=== PATIENT | male | born 1940 | race Caucasian/White ===

== ENCOUNTER 2017-10-07 07:31 | Emergency (ER) | payer MEDICARE, OTHER ==
[~2017-10-07] VITALS: Ht 177.8 cm; Wt 111.0 kg
[2017-10-07 07:33] VITALS: BP 195/93
[2017-10-07] MEDS ORDERED: LIDOcaine 2% 10ml TOPICAL JELLY (Urojet) MM ONE (08:05)
[2017-10-07] MEDS ORDERED: morphine 4 MG/ML inj SYRINge IV ONE (08:20)
[2017-10-07 09:12] LABS: BASOPHILS % (AUTO) 0.2 % (0-1); EOSINOPHILS # (AUTO) 0.2 X10'3 (0-0.9); EOSINOPHILS % (AUTO) 2.1 % (0-6); HEMATOCRIT 44.7 % (42.0-52.0); HEMOGLOBIN 14.9 g/dl (14.0-17.9); LYMPHOCYTES # (AUTO) 1.7 X10'3 (1.1-4.8); LYMPHOCYTES % (AUTO) 14.9 % (21-51); MEAN CORPUSCULAR HEMOGLOBIN 32.1 PG (27.0-31.0); MEAN CORPUSCULAR HGB CONC 33.5 % (33.0-36.5); MEAN CORPUSCULAR VOLUME 95.9 FL (78-98); MEAN PLATELET VOLUME 9.4 FL (7.4-10.4); MONOCYTES # (AUTO) 0.6 X10'3 (0-0.9); MONOCYTES % (AUTO) 5.6 % (2-12); NEUTROPHILS # (AUTO) 8.6 X10'3 (1.8-7.7); NEUTROPHILS % (AUTO) 77.2 % (42-75); PLATELET COUNT 167 X10'3 (140-440); RED BLOOD COUNT 4.66 X10'6 (4.70-6.10); RED CELL DISTRIBUTION WIDTH 13.1 % (11.5-14.5); WHITE BLOOD COUNT 11.1 X10'3 (4.5-11.0)
[2017-10-07 09:14] LABS: ALANINE AMINOTRANSFERASE 18 U/L (12-78); ALBUMIN 3.7 G/DL (3.4-5.0); ALBUMIN/GLOBULIN RATIO 0.9 (1.1-1.5); ALKALINE PHOSPHATASE 94 IU/L (46-116); ANION GAP 10 (8-16); ASPARTATE AMINO TRANSFERASE 18 U/L (10-37); BILIRUBIN,TOTAL 0.4 MG/DL (0.1-1.0); BLOOD UREA NITROGEN 22 MG/DL (7-18); BUN/CREATININE RATIO 20.4 (5.4-32.0); CALCIUM 8.9 MG/DL (8.5-10.1); CHLORIDE 104 MMOL/L (99-107); CREATININE 1.08 MG/DL (0.60-1.10); GLUCOSE 132 MG/DL (70-104); SODIUM 138 MMOL/L (135-145); TOTAL CARBON DIOXIDE 23.6 MMOL/L (24-32); TOTAL PROTEIN 7.6 G/DL (6.4-8.2); eGFR 66 ML/MIN
== END 2017-10-07 08:55 | disposition home or self-care (01) ==
LOC: ER 07:31
DX: R33.9 Retention of urine, unspecified (principal); Z90.79 Acquired absence of other genital organ(s)
CPT/HCPCS: 36415; 80053; 85025; 99285; A4315; C1758

== ENCOUNTER 2022-08-23 10:24 | Outpatient (CLI) | payer MEDICARE ==
[2022-08-23 11:07] LABS: BASOPHILS % (AUTO) 0.6 % (0-1); EOSINOPHILS # (AUTO) 0.3 X10'3 (0-0.9); EOSINOPHILS % (AUTO) 3.5 % (0-6); HEMATOCRIT 42.7 % (42.0-52.0); HEMOGLOBIN 14.4 g/dl (14.0-17.9); LYMPHOCYTES # (AUTO) 2.2 X10'3 (1.1-4.8); LYMPHOCYTES % (AUTO) 26.8 % (21-51); MEAN CORPUSCULAR HEMOGLOBIN 32.5 PG (27.0-31.0); MEAN CORPUSCULAR HGB CONC 33.7 g/dL (33.0-36.5); MEAN CORPUSCULAR VOLUME 96.4 FL (78-98); MEAN PLATELET VOLUME 8.9 FL (7.4-10.4); MONOCYTES # (AUTO) 0.6 X10'3 (0-0.9); NEUTROPHILS # (AUTO) 5.1 X10'3 (1.8-7.7); NEUTROPHILS % (AUTO) 62.1 % (42-75); PLATELET COUNT 192 X10'3 (140-440); RED BLOOD COUNT 4.42 X10'6 (4.70-6.10); RED CELL DISTRIBUTION WIDTH 13.9 % (11.5-14.5); WHITE BLOOD COUNT 8.2 X10'3 (4.5-11.0)
[2022-08-23 11:24] LABS: APTT 28 SECONDS (22-32)
[2022-08-23 11:37] LABS: ALANINE AMINOTRANSFERASE 19 U/L (12-78); ALBUMIN 3.5 G/DL (3.4-5.0); ALKALINE PHOSPHATASE 84 IU/L (46-116); ANION GAP 6 (8-16); ASPARTATE AMINO TRANSFERASE 12 U/L (10-37); BILIRUBIN,TOTAL 0.4 MG/DL (0.1-1.0); BLOOD UREA NITROGEN 17 MG/DL (7-18); BUN/CREATININE RATIO 16.2 (10.0-20.0); CALCIUM 8.9 MG/DL (8.5-10.1); CHLORIDE 107 MMOL/L (99-107); CREATININE 1.05 MG/DL (0.60-1.10); POTASSIUM 4.3 MMOL/L (3.5-5.1); SODIUM 140 MMOL/L (135-145); TOTAL CARBON DIOXIDE 26.8 MMOL/L (24-32); TOTAL PROTEIN 7.1 G/DL (6.4-8.2); eGFR 67 ML/MIN
[2022-08-23 11:49] LABS: GLUCOSE 118 MG/DL (70-104)
[2022-08-23] MEDS ORDERED: IODIXANOL 320 MG/ML INFUS..BTL 100ML IV ONE (11:53)
== END 2022-08-23 23:59 | disposition home or self-care (01) ==
LOC: RAD 10:24
PROVIDERS: ATTEND Internal Medicine Cardiovascular Disease
DX: K76.0 Fatty (change of) liver, not elsewhere classified (principal); I35.8 Other nonrheumatic aortic valve disorders; R06.02 Shortness of breath; I65.29 Occlusion and stenosis of unspecified carotid artery; I25.10 Atherosclerotic heart disease of native coronary artery without angina pectoris; I70.0 Atherosclerosis of aorta; J43.2 Centrilobular emphysema; J98.11 Atelectasis; D73.89 Other diseases of spleen; N28.1 Cyst of kidney, acquired; K42.9 Umbilical hernia without obstruction or gangrene; K57.30 Diverticulosis of large intestine without perforation or abscess without bleeding; M47.814 Spondylosis without myelopathy or radiculopathy, thoracic region; M47.817 Spondylosis without myelopathy or radiculopathy, lumbosacral region; Z96.641 Presence of right artificial hip joint
CPT/HCPCS: 36415; 71046; 71275; 74174; 80053; 83880; 85025; 85610; 85730; 94010; 94727; 94729; J3490; Q9967

== ENCOUNTER 2022-08-26 14:31 | Day surgery (SDC) | payer MEDICARE ==
[2022-08-26] VITALS (7 sets, daily range): BP systolic 129–157; BP diastolic 57–82
[~2022-08-26] VITALS: Ht 175.3 cm; Wt 108.9 kg
[2022-08-26] MEDS ORDERED: LORazepam 0.5 MG tablet PO PRN (14:55)
[2022-08-26] MEDS ORDERED: normal saline 1,000 ML IV SCH (14:55)
[2022-08-26] MEDS ORDERED: diphenhydrAMINE 25mg capsule PO PRN (14:55)
[2022-08-26] MEDS ORDERED: ASPI81TA52 PO (15:38)
[2022-08-26] MEDS ORDERED: AMLO5TAB4 PO (15:38)
[2022-08-26] MEDS ORDERED: LISI40TA13 PO (15:38)
[2022-08-26] MEDS ORDERED: MULT-1085 PO (15:38)
[2022-08-26] MEDS ORDERED: OMEG-42 PO (15:38)
[2022-08-26] MEDS ORDERED: LEVO50TA PO (15:38)
[2022-08-26] MEDS ORDERED: SIMV-343 PO (15:38)
[2022-08-26] MEDS ORDERED: GABA-534 PO (15:38)
[2022-08-26] MEDS ORDERED: LIDOcaine 1% (10mg/ml) 2ml vial ONE (16:25)
[2022-08-26] MEDS ORDERED: nitroGLYCERIN-Tridil 50MG/D5W 250 ML IV ONE (16:25)
[2022-08-26] MEDS ORDERED: fentaNYL/PF 50MCG/1 ML 2ML syringe ONE (16:26)
[2022-08-26] MEDS ORDERED: heparin 1,000unit/ml 10ml vial 10 ML ONE (16:26)
[2022-08-26] MEDS ORDERED: midazolam 1 mg/ML 2ml injection ONE (16:26)
[2022-08-26] MEDS ORDERED: verapamil 2.5 mg/ml inj IV ONE (16:26)
[2022-08-26] MEDS ORDERED: iohexol 350MG/ML 100ml bottle IV ONE ×2 (16:26→18:04)
[2022-08-26 18:17] LABS: ISTAT HGB ART 12.6 g/dl (14.0-17.9); ISTAT Hct ART 37 %PCV (42-52); ISTAT O2 SATURATION ARTERIAL 87 % (95-98); ISTAT SOURCE ART
[2022-08-26] MEDS ORDERED: HYDROcodone/acetaminophen 10/325mg tab PO PRN (18:40)
[2022-08-26] MEDS ORDERED: HYDROcodone/acetaminophen 5mg/325mg tablet PO PRN (18:40)
[2022-08-27 15:18] LABS: ISTAT Hct MIX 38 %PCV (42-52); ISTAT O2 SATURATION MIX VENOUS 64 % (60-80); ISTAT SOURCE VEN
== END 2022-08-26 20:33 | disposition home or self-care (01) ==
LOC: SSTAY O 14:31
PROVIDERS: ATTEND Student in an Organized Health Care Education/Training Program
DX: I08.0 Rheumatic disorders of both mitral and aortic valves (principal); I25.10 Atherosclerotic heart disease of native coronary artery without angina pectoris; T82.855A Stenosis of coronary artery stent, initial encounter; I10 Essential (primary) hypertension; E78.5 Hyperlipidemia, unspecified; Z79.82 Long term (current) use of aspirin; Z79.899 Other long term (current) drug therapy; Z87.891 Personal history of nicotine dependence; Y84.0 Cardiac catheterization as the cause of abnormal reaction of the patient, or of later complication, without mention of misadventure at the time of the procedure; Y92.89 Other specified places as the place of occurrence of the external cause
CPT/HCPCS: 82803; 85014; 93005; 93456; 99152; 99153; A6258; J1644; J2250; J3010; J3490; J7030; Q0163; Q9967; A6402; C1751; C1894

== ENCOUNTER 2022-09-19 05:20 | Inpatient (IN) | payer MEDICARE ==
[2022-09-11 14:29] LABS: CLARITY,URINE CLOUDY (Clear); COLOR,URINE YELLOW (Yellow); GLUCOSE, URINE NEGATIVE (Neg); KETONES,URINE 15 mg/dl (Neg); LEUKOCYTE ESTERASE ,URINE TRACE (Neg); NITRITES, URINE NEGATIVE (Neg); OCCULT BLOOD,URINE NEGATIVE (Neg); PROTEIN,URINE TRACE mg/dl (Neg)
[2022-09-11 14:41] LABS: BASOPHILS % (AUTO) 0.3 % (0-1); EOSINOPHILS # (AUTO) 0.3 X10'3 (0-0.9); EOSINOPHILS % (AUTO) 2.9 % (0-6); LYMPHOCYTES # (AUTO) 2.5 X10'3 (1.1-4.8); LYMPHOCYTES % (AUTO) 28.1 % (21-51); MEAN CORPUSCULAR HEMOGLOBIN 32.7 PG (27.0-31.0); MEAN CORPUSCULAR HGB CONC 33.9 g/dL (33.0-36.5); MEAN CORPUSCULAR VOLUME 96.7 FL (78-98); MONOCYTES # (AUTO) 0.7 X10'3 (0-0.9); MONOCYTES % (AUTO) 7.4 % (2-12); NEUTROPHILS # (AUTO) 5.4 X10'3 (1.8-7.7); NEUTROPHILS % (AUTO) 61.3 % (42-75); PRE OP HEMATOCRIT 41.5 % (42.0-52.0); PRE OP PLATELET COUNT 182 X10'3 (140-440); PRE OP PROTIME 11.1 SECONDS (9.0-12.0); RED BLOOD COUNT 4.29 X10'6 (4.70-6.10); RED CELL DISTRIBUTION WIDTH 13.7 % (11.5-14.5)
[2022-09-11 14:50] LABS: ALBUMIN 3.5 G/DL (3.4-5.0); ALBUMIN/GLOBULIN RATIO 1.1 (1.1-1.5); ALKALINE PHOSPHATASE 79 IU/L (46-116); BLOOD UREA NITROGEN 24 MG/DL (7-18); BUN/CREATININE RATIO 16.3 (10.0-20.0); CALCIUM 9.1 MG/DL (8.5-10.1); CHLORIDE 106 MMOL/L (99-107); CREATININE 1.47 MG/DL (0.60-1.10); PRE OP ALT 19 U/L (30-65); PRE OP ANION GAP 5 (8-16); PRE OP AST 15 U/L (10-37); PRE OP BILIRUB, TOTAL 0.6 MG/DL (0.0-1.0); PRE OP POTASSIUM 4.5 MMOL/L (3.4-5.1); PRE OP SODIUM 140 MMOL/L (135-145); TOTAL CARBON DIOXIDE 28.7 MMOL/L (24-32); TOTAL PROTEIN 6.8 G/DL (6.4-8.2); eGFR 46 ML/MIN
[2022-09-11 14:50] LABS: UA COLLECTION TYPE CLN CATCH MIDSTREAM
[2022-09-11 14:53] LABS: PRE OP GLUCOSE 109 MG/DL (70-104)
[2022-09-11 14:57] LABS: HYALINE CASTS >30 /LPF (NEGATIVE); SQUAMOUS EPITHELIAL CELL,UR MODERATE /LPF (FEW); WBC CLUMPS,URINE MANY /HPF (NEGATIVE)
[2022-09-11 14:58] LABS: BACTERIA,URINE 1+ /HPF (Neg); CAL OXALATE CRYSTALS FEW /HPF (NEGATIVE); RBC,URINE 0-2 /HPF (0-2); WBC,URINE 30-50 /HPF (0-4)
[~2022-09-19] VITALS: Ht 175.3 cm; Wt 109.0 kg
[2022-09-19] VITALS (26 sets, daily range): BP systolic 102–141; BP diastolic 50–79
[~2022-09-19 05:20] MED LIST: AMLO5TAB4 PO; AREDS PO; ASPI81TA52 PO; GABA-534 PO; LEVO50TA PO; LISI40TA13 PO; SIMV-343 PO; ringers solution, lacted 1,000 ML IV SCH
[2022-09-19] MEDS ORDERED: cefazolin 2gm/D5W 100mL 100 ML IV ONE (05:30)
[2022-09-19] MEDS ORDERED: vancomycin 1,500 MG in NS 300ml IV soln IV ONE (05:30)
[2022-09-19] MEDS ORDERED: nitroPRUSSIDE (NIPRIDE) (200MCG/ML) 100ML Drip IV SCH (05:30)
[2022-09-19] MEDS ORDERED: famotidine 20mg tablet PO ONE (05:30)
[2022-09-19] MEDS ORDERED: phenylephrine inj 50 MG in normal saline 250ml IV solN IV SCH (05:30)
[2022-09-19] MEDS ORDERED: aspirin 325mg tablet PO ONE (05:30)
[2022-09-19] MEDS ORDERED: ondansetron/PF 4mg/2ml inj IV PRN ×3 (05:30→08:35)
[2022-09-19] MEDS ORDERED: LIDOcaine 1% 30ml preserv. free vial ONE (06:36)
[2022-09-19] MEDS ORDERED: heparin 1,000 UNITS/NS 500ml 1,500 ML ONE (06:36)
[2022-09-19] MEDS ORDERED: iohexol 350MG/ML 100ml bottle IV ONE (06:36)
[2022-09-19] MEDS ORDERED: midazolam 1 mg/ML 2ml injection ONE (06:56)
[2022-09-19] MEDS ORDERED: fentaNYL/PF 50MCG/1 ML 2ML syringe ONE (06:56)
[2022-09-19] MEDS ORDERED: propofol inj 20 ML IV ONE ×3 (06:59)
[2022-09-19] MEDS ORDERED: ringers solution, lacted 1,000 ML IV SCH (07:05)
[2022-09-19] MEDS ORDERED: meperidine/PF 25mg/ml syringe IV PRN (07:05)
[2022-09-19] MEDS ORDERED: labetalol 20mg/4ml (5mg/ml) syringe IV PRN ×2 (07:05→08:35)
[2022-09-19] MEDS ORDERED: acetaminophen 1,000mg/100ml IV 100 ML IV PRN (07:05)
[2022-09-19] MEDS ORDERED: hydrALAZINE 20mg/ml inj. IV PRN ×2 (07:05→08:35)
[2022-09-19] MEDS ORDERED: HYDROmorphone/PF 0.2 MG/ML SYRINGE IV PRN ×2 (07:05)
[2022-09-19] MEDS ORDERED: proCHLORperazine 10 MG/2 ml inj IV PRN ×2 (07:05→08:35)
[2022-09-19] MEDS ORDERED: morphine 2 MG/ML inj. syringe IV PRN (07:05)
[2022-09-19] MEDS ORDERED: morphine 4 MG/ML inj SYRINge IV PRN (07:05)
[2022-09-19] MEDS ORDERED: LIDOcaine 1% (10mg/ml) 2ml vial ONE ×2 (07:17→07:29)
[2022-09-19] MEDS ORDERED: protamine sulfate 10mg/ml inj. ONE (07:30)
[2022-09-19] MEDS ORDERED: heparin 1,000unit/ml 10ml vial 10 ML ONE (07:36)
[2022-09-19] MEDS ORDERED: atorvastatin 20mg tablet PO SCH (08:00)
[2022-09-19] MEDS ORDERED: lisinopril 20mg tablet PO SCH (08:00)
[2022-09-19] MEDS ORDERED: AREDS PO SCH (08:00)
[2022-09-19] MEDS ORDERED: aspirin 81mg, enteric-coated 1 TAB TABLET.DR PO SCH (08:00)
[2022-09-19] MEDS ORDERED: amLODIPine 5mg tablet PO SCH (08:00)
[2022-09-19] MEDS ORDERED: potassium Cl 20mEq/100mL bag 100 ML IV PRN (08:35)
[2022-09-19] MEDS ORDERED: potassium Cl 20 mEq SR tablet PO PRN (08:35)
[2022-09-19] MEDS ORDERED: pantoprazole 40mg Tablet.DR PO PRN (08:35)
[2022-09-19] MEDS ORDERED: potassium Cl 40MEQ/1/2NS 520ml 520 ML IV PRN (08:35)
[2022-09-19] MEDS ORDERED: magnesium 2GM in 50ml NS 50 ML IV PRN (08:35)
[2022-09-19] MEDS ORDERED: docusate sod 100mg capsule PO PRN (08:35)
[2022-09-19] MEDS ORDERED: HYDROcodone/acetaminophen 5mg/325mg tablet PO PRN (08:35)
[2022-09-19] MEDS ORDERED: diphenhydrAMINE 25mg capsule PO PRN (08:35)
[2022-09-19] MEDS ORDERED: acetaminophen 325mg tablet PO PRN (08:35)
[2022-09-19] MEDS ORDERED: magnesium 4gm in 100ml NS 100 ML IV PRN (08:35)
[2022-09-19] MEDS ORDERED: normal saline 1000ml 1,000 ML IV SCH (08:35)
[2022-09-19] MEDS ORDERED: potassium CL 10mEq/100ml bag 100 ML IV PRN (08:35)
[2022-09-19] MEDS ORDERED: potassium Cl 40MEQ/270ML bag 250 ML IV PRN (08:35)
[2022-09-19] MEDS ORDERED: ALPRAZolam 0.25mg tablet PO PRN (08:35)
--- NOTE | 2022-09-19 08:44 | NUR ---
Received from OR via BED, accompanied by Anesthesiologist DR. WELLS and report given by Anesthesiologist AND OR NURSE. PT ARRIVED DROWSY BUT ABLE TO RESPOND TO VERBAL STIMULI ON 6 L OF 02 VIA MASK. VSS. PT HAS 20G IV TO RIGHT HAND AND ART LINE TO LEFT WRIST AND PRESSURE DEVICE INTACT. PT HAS DRESSING TO BILATERAL GROIN THAT IS C/D/I, NO SWELLING OR BLEEDING NOTED. LR CURRENTLY RUNNING. NEURO ASSESSMENT COMPLETED. 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 BILATERAL PEDAL PULSES STRONG. VSS. WILL CONTINUE TO MONITOR AND RECHECK GROIN SITES. Addendum: 09/19/22 at 0921 by Rubén Harkins RN Amended: Links added.
--- NOTE | 2022-09-19 09:55 | NUR ---
DISCONTINUE LEFT RADIAL ARTLINE WITH MANUAL PRESSURE. HEMOSTASIS IS OBTAINED AFTER 5 MINUTES. NO S/S OF BLEEDING OR HEMATOMA NOTED. APPLIED GAUZE AND COBAN THAT IS C/D/I AT THIS TIME.
--- NOTE | 2022-09-19 10:34 | NUR ---
PATIENT HAS MET ALL CRITERIA FOR TRANSFER TO SHORT-STAY FLOOR. VSS. DRESSINGS INTACT. BED LOW, CALL LIGHT PRESENT AND 2 RAILS UP. RN PRESENT TO ACCEPT CARE OF PATIENT AND REPORT HAS BEEN CALLED. ALL QUESTIONS ANSWERED TO ACCEPTING RN. Addendum: 09/19/22 at 1054 by Rubén Harkins RN Amended: Links added.
[2022-09-19] MEDS: gabapentin 400mg capsule PO SCH ×3 (11:00→19:49)
--- NOTE | 2022-09-19 12:10 | NUR ---
Dr. Aceves in to see pt. per we can saline lock at this time.
--- NOTE | 2022-09-19 15:32 | NUR ---
DR. Yuli Padilla in to see pt.
[2022-09-19] MEDS: ceFAZolin 1GM/D5W- ADD-VANTAGE 50 ML IV SCH (15:50)
--- NOTE | 2022-09-19 15:57 | NUR ---
pt states he takes gabapentin at 1999 and does not want to take it now. he want sto take it tonight at 2000.
[2022-09-19] MEDS: sod chloride 0.9% 10ml flush syringe IV SCH (16:00)
--- NOTE | 2022-09-19 19:13 | NUR ---
Problems reprioritized. Patient report given, questions answered & plan of care reviewed with Monica EVANS, patient stable at transfer of care.
[2022-09-19] MEDS: vancomycin/NS 1 GM ADD-VANTAGE 250 ML IV SCH (19:48)
[2022-09-20] MEDS: ceFAZolin 1GM/D5W- ADD-VANTAGE 50 ML IV SCH ×2 (00:13→08:00)
[2022-09-20 02:00] VITALS: BP 108/54
--- NOTE | 2022-09-20 06:36 | NUR ---
Patient report given, questions answered & plan of care reviewed with NTAHAN Badillo
[2022-09-20 06:45] LABS: BASOPHILS # (AUTO) 0.1 X10'3 (0-0.2); BASOPHILS % (AUTO) 0.8 % (0-1); EOSINOPHILS # (AUTO) 0.2 X10'3 (0-0.9); EOSINOPHILS % (AUTO) 2.1 % (0-6); HEMATOCRIT 38.5 % (42.0-52.0); HEMOGLOBIN 13.3 g/dl (14.0-17.9); LYMPHOCYTES # (AUTO) 1.8 X10'3 (1.1-4.8); LYMPHOCYTES % (AUTO) 17.4 % (21-51); MEAN CORPUSCULAR HEMOGLOBIN 32.8 PG (27.0-31.0); MEAN CORPUSCULAR HGB CONC 34.5 g/dL (33.0-36.5); MEAN CORPUSCULAR VOLUME 94.9 FL (78-98); MEAN PLATELET VOLUME 9.2 FL (7.4-10.4); MONOCYTES # (AUTO) 1.2 X10'3 (0-0.9); MONOCYTES % (AUTO) 11.1 % (2-12); NEUTROPHILS # (AUTO) 7.2 X10'3 (1.8-7.7); NEUTROPHILS % (AUTO) 68.6 % (42-75); PLATELET COUNT 124 X10'3 (140-440); RED BLOOD COUNT 4.06 X10'6 (4.70-6.10); RED CELL DISTRIBUTION WIDTH 13.7 % (11.5-14.5); WHITE BLOOD COUNT 10.5 X10'3 (4.5-11.0)
[2022-09-20 07:00] VITALS: BP 135/60
[2022-09-20 07:10] LABS: ALANINE AMINOTRANSFERASE 15 U/L (12-78); ALBUMIN 2.9 G/DL (3.4-5.0); ALBUMIN/GLOBULIN RATIO 0.9 (1.1-1.5); ALKALINE PHOSPHATASE 72 IU/L (46-116); ANION GAP 9 (8-16); ASPARTATE AMINO TRANSFERASE 15 U/L (10-37); BILIRUBIN,TOTAL 0.7 MG/DL (0.1-1.0); BLOOD UREA NITROGEN 14 MG/DL (7-18); BUN/CREATININE RATIO 15.4 (10.0-20.0); CALCIUM 8.5 MG/DL (8.5-10.1); CHLORIDE 105 MMOL/L (99-107); CREATININE 0.91 MG/DL (0.60-1.10); MAGNESIUM 2.2 MG/DL (1.5-2.4); SODIUM 139 MMOL/L (135-145); TOTAL PROTEIN 6.2 G/DL (6.4-8.2); eGFR 79 ML/MIN
[2022-09-20 07:14] LABS: GLUCOSE 115 MG/DL (70-104)
[2022-09-20] MEDS ORDERED: levoTHYROXINE 25mcg tablet PO SCH (07:30)
[2022-09-20] MEDS: vancomycin/NS 1 GM ADD-VANTAGE 250 ML IV SCH (07:32)
[2022-09-20] MEDS: sod chloride 0.9% 10ml flush syringe IV SCH ×2 (07:33)
[2022-09-20] MEDS: gabapentin 400mg capsule PO SCH ×3 (07:33→12:00)
[2022-09-20] MEDS ORDERED: amLODIPine 5mg tablet PO SCH (08:00)
[2022-09-20] MEDS ORDERED: lisinopril 20mg tablet PO SCH (08:00)
[2022-09-20] MEDS ORDERED: atorvastatin 20mg tablet PO SCH (08:00)
[2022-09-20] MEDS ORDERED: aspirin 81mg tab.chew PO SCH (08:30)
[2022-09-20 11:00] VITALS: BP 128/55
--- NOTE | 2022-09-20 11:55 | NUR ---
Pt ambulated with FWW 300+ Ft with no difficulties. No oxygen requirements at this time. post op IV ABX complete.
== END 2022-09-20 13:49 | disposition home or self-care (01) | DRG 266 ==
LOC: PAS IN 05:20 → PCU 3S 16:57
PROVIDERS: ADMIT Internal Medicine Cardiovascular Disease; ATTEND Internal Medicine Cardiovascular Disease
PROC: B41D1ZZ Fluoroscopy of Aorta and Bilateral Lower Extremity Arteries using Low Osmolar Contrast (ICD-10-PCS; 2022-09-19)
PROC: 02RF38Z Replacement of Aortic Valve with Zooplastic Tissue, Percutaneous Approach (ICD-10-PCS; principal; 2022-09-19 07:01)
DX: I35.0 Nonrheumatic aortic (valve) stenosis (principal); Z00.6 Encounter for examination for normal comparison and control in clinical research program; I50.33 Acute on chronic diastolic (congestive) heart failure; I11.0 Hypertensive heart disease with heart failure; E78.5 Hyperlipidemia, unspecified; I25.10 Atherosclerotic heart disease of native coronary artery without angina pectoris; Z95.5 Presence of coronary angioplasty implant and graft; Z79.899 Other long term (current) drug therapy; Z79.82 Long term (current) use of aspirin
CPT/HCPCS: 33361; 36415; 71045; 71046; 76937; 80053; 81001; 83735; 83880; 84443; 85025; 85347; 85610; 85730; 86885; 86900; 86901; 86920; 87081; 87088; 93005; 93308; A4618; A6258; A6449; C1756; C1760; C1769; C1894; G0378; J0690; J1644; J2250; J2370; J2704; J2720; J3010; J3370; J3490; J7030; J7040; J7050; J7120; Q9967

== ENCOUNTER 2023-11-06 06:28 | Outpatient (CLI) | payer MEDICARE ==
[~2023-11-06 06:28] MED LIST changes: -GABA-534 PO; +GABA-535 PO; -ringers solution, lacted 1,000 ML IV SCH
== END 2023-11-06 23:59 | disposition home or self-care (01) ==
LOC: TAVR 06:28
PROVIDERS: ATTEND Internal Medicine Cardiovascular Disease
DX: Z48.812 Encounter for surgical aftercare following surgery on the circulatory system (principal); Z95.2 Presence of prosthetic heart valve